=== PATIENT | male | born 1970 | race Caucasian/White ===

== ENCOUNTER 2017-04-10 22:14 | Emergency (ER) | payer OTHER ==
[~2017-04-10] VITALS: Ht 170.2 cm; Wt 84.0 kg
[~2017-04-10 22:14] MED LIST: 1-ME1LIQ PO; ATOR80TA41 PO; CIPR500T4 PO; CONTOUR1 XX; DIPH1TAB36 PO; FLON0.053; GLIP10TA6 PO; GLUCTAB PO; METF1000 PO; PRED50 PO; VENTAER INH
[2017-04-10 22:23] VITALS: BP 123/72; PULSE 102; RESP 12; TEMP 99.2; O2SAT 99
[2017-04-10 22:34] VITALS: BP 123/72; PULSE 96; RESP 14; TEMP 99.2; O2SAT 98
[2017-04-10 23:29] LABS: AUTOMATED NEUTROPHIL # 4.6 TH/MM3 (1.8-7.7); BASOPHIL # 0.1 TH/MM3 (0-0.2); BASOPHIL % 1.4 % (0.0-2.0); EOSINOPHIL # 0.1 TH/MM3 (0-0.4); EOSINOPHIL % 1.2 % (0.0-4.0); HEMATOCRIT 41.2 % (39.0-51.0); HEMO FLAGS DIFF FINAL; LYMPH % 37.6 % (9.0-44.0); LYMPHOCYTE # 3.6 TH/MM3 (1.0-4.8); MEAN CELL VOLUME 95.7 FL (80.0-100.0); MEAN CORPUSCULAR HEMOGLOBIN 32.8 PG (27.0-34.0); MEAN CORPUSCULAR HGB CONC 34.3 % (32.0-36.0); MONO % 10.6 % (0.0-8.0); NEUT % 49.2 % (16.0-70.0); PLATELET COUNT 271 TH/MM3 (150-450); RED CELL DISTRIBUTION WIDTH 13.8 % (11.6-17.2); WHITE BLOOD COUNT 9.4 TH/MM3 (4.0-11.0)
[2017-04-10 23:35] LABS: AMPHETAMINE, URINE NEG (NEG); BARBITURATES, URINE NEG (NEG); COCAINE, URINE NEG (NEG)
[2017-04-10 23:41] LABS: ANION GAP 13 MEQ/L (5-15)
[2017-04-10 23:44] LABS: ALKALINE PHOSPHATASE 171 U/L (45-117); ALT (GPT) 196 U/L (12-78); AST (GOT) 152 U/L (15-37); BICARBONATE 23.5 MEQ/L (21.0-32.0); BLOOD UREA NITROGEN 7 MG/DL (7-18); CHLORIDE 98 MEQ/L (98-107); GLOMERULAR FILTRATION RATE 115 ML/MIN (>89); POTASSIUM 3.8 MEQ/L (3.5-5.1); SODIUM (NA) 134 MEQ/L (136-145); TOTAL BILIRUBIN ADULT 0.6 MG/DL (0.2-1.0)
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
[2017-04-11 04:03] VITALS: BP 134/68; PULSE 88; RESP 16; O2SAT 97
[2017-04-11 05:21] VITALS: BP 96/68; PULSE 68; RESP 16; O2SAT 99
--- NOTE | 2017-04-11 13:08 | PD.CONS ---
Provisional Diagnosis Admission Date [place] I. Alcohol induced mood disorder, alcohol abuse [place] II. Deferred deferred [place] III. Diabetics History of Present Illness Service Psychiatry Consult Requested By Primary Care Physician OWEN Mo The patient is a 46-year-old man, , domicile with his mother in [place], employed, with psychiatric history of depression, alcohol use disorder, no psychiatric hospitalizations, no suicide attempts, he has overdosed with alcohol in the past, medical history of diabetes mellitus, who was brought to the hospital under Echavarria act intoxicated with alcohol and was suicidal ideation. Initial BAL was 238. Today a psychiatric evaluation patient denies suicidal ideation, denies depressive symptoms, is that he has been having marital conflicts with his , he has been no coping well with anxiety and stress, but he understand his problem is alcohol. He just finished yesterday at 7 days course of detox in [facility]. He says that his is scheduled to start rehabilitation on April 14 in [facility] and his planning to be compliant. At this moment patient denies homicidal ideation, visual hallucinations. Patient is oriented 3. Review of Systems Constitutional: DENIES: Diaphoretic episodes, Fatigue, Fever, Weight gain, Weight loss, Chills, Dizziness, Change in appetite, Night Sweats Endocrine: DENIES: Heat/cold intolerance, Polydipsia, Polyuria, Polyphagia Eyes: DENIES: Blurred vision, Diplopia, Eye inflammation, Eye pain, Vision loss , Photosensitivity, Double Vision Ears, nose, mouth, throat: DENIES: Tinnitus, Hearing loss, Vertigo, Nasal discharge, Oral lesions, Throat pain, Hoarseness, Ear Pain, Running Nose, Epistaxis, Sinus Pain, Toothache, Odynophagia Respiratory: DENIES: Apneas, Cough, Snoring, Wheezing, Hemoptysis, Sputum production, Shortness of breath Cardiovascular: DENIES: Chest pain, Palpitations, Syncope, Dyspnea on Exertion , PND, Lower Extremity Edema, Orthopnea, Claudication Gastrointestinal: DENIES: Abdominal pain, Black stools, Bloody stools, Constipation, Diarrhea, Nausea, Vomiting, Difficulty Swallowing, Anorexia Genitourinary: DENIES: Sexual dysfunction, Urinary frequency, Urinary incontinence, Urgency, Hematuria, Dysuria, Nocturia, Penile Discharge, Testicular Pain, Testicular Swelling Musculoskeletal: DENIES: Joint pain, Muscle aches, Stiffness, Joint Swelling, Back pain, Neck pain Integumentary: DENIES: Abnormal pigmentation, Nail changes, Pruritus, Rash Hematologic/lymphatic: DENIES: Bruising, Lymphadenopathy Immunologic/allergic: DENIES: Eczema, Urticaria Neurologic: DENIES: Abnormal gait, Headache, Localized weakness, Paresthesias, Seizures, Speech Problems, Tremor, Poor Balance Past Family Social History Coded Allergies: Penicillin (Verified Allergy, Severe, 04/10/17) as a child unknown reaction poss rash Morphine (Verified Adverse Reaction, Severe, N&V, 04/10/17) and high fever Active Scripts Metformin 1,000 Mg Tab1,000 Mg PO BIDPC #180 TAB Ref 0 With meals Prov:Rosalinda Jones MD 10/05/16 Family History Patient denies family psychiatric history Social History Patient was born and raised in [place], lives in [place] with mother, disabled, employed, highest level of education is high school Patient's Strengths (min. 2) Insight of his alcoholism Physical Exam No withdrawal, no EPS, no agitation, no tremors Vital Signs Vital Signs Date Time Temp Pulse Resp B/P Pulse Ox O2 Delivery O2 Flow Rate FiO2 04/11/17 05:21 68 16 96/68 99 04/11/17 04:03 Room Air 04/10/17 22:34 99.2 Lab Results Toxicology positive for benzodiazepines, BAL 238 Mental Status Examination Appearance Patient has [facility], age appearing, good hygiene, calm and cooperative Speech: Unremarkable Orientation: x3 Memory: Unremarkable Thought Process: Logical Thought Content: Unremarkable Hallucination Type: None Suicidal Ideation: No Previous Suicide Attempts: No Homicidal Ideation: No Previous Homicide Attempts: No Insight: Fair Affect: Good Mood: Appropriate Motor Activity: Normal gait Assessment & Plan Problem List: (1) Alcohol abuse with alcohol-induced mood disorder Assessment & Plan: Patient denies depression, denies anxiety, denies psychosis , he denies suicidal or homicidal ideation, he denies visual and auditory hallucinations. Patient is motivated to go to his rehabilitation program on April 14, he just finished detox in [facility] act. He does not meet criteria for psychiatric admission. Motivational interview provided. Echavarria act will be lifted.. ICD Code: F10.14 Assessment & Plan Estimated LOS: Allen Armendariz MD April 11, 2017 13:07
== END 2017-04-11 08:56 | disposition home or self-care (01) ==
LOC: NEPD 22:14
DX: F10.14 Alcohol abuse with alcohol-induced mood disorder (principal); F43.21 Adjustment disorder with depressed mood; R74.0 Nonspecific elevation of levels of transaminase and lactic acid dehydrogenase [LDH]; I10 Essential (primary) hypertension; E11.9 Type 2 diabetes mellitus without complications
CPT/HCPCS: 80053; 80307; 85025; 99284

== ENCOUNTER 2017-04-19 20:33 | Emergency (ER) | payer SELFPAY ==
[~2017-04-19] VITALS: Ht 177.8 cm; Wt 100.0 kg
[~2017-04-19 20:33] MED LIST changes: -1-ME1LIQ PO; -ATOR80TA41 PO; -CIPR500T4 PO; -CONTOUR1 XX; -DIPH1TAB36 PO; -FLON0.053; -GLIP10TA6 PO; -GLUCTAB PO; -PRED50 PO; -VENTAER INH
[2017-04-19 20:40] VITALS: BP 109/66; PULSE 101; RESP 22; TEMP 98.7; O2SAT 93
[2017-04-19] MEDS ORDERED: THIAMINE HCL 100 MG TAB PO ONE (20:45)
[2017-04-19] MEDS ORDERED: SODIUM CHLOR 0.9% 1000 ML INJ 1,000 ML IV ONE (20:45)
[2017-04-19] MEDS ORDERED: FOLIC ACID 1 MG TAB PO ONE (20:45)
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
[2017-04-19 21:00] VITALS: BP 109/65; PULSE 97; RESP 18; O2SAT 96
[2017-04-19 21:02] LABS: AUTOMATED NEUTROPHIL # 3.9 TH/MM3 (1.8-7.7); BASOPHIL # 0.1 TH/MM3 (0-0.2); BASOPHIL % 1.4 % (0.0-2.0); EOSINOPHIL # 0.3 TH/MM3 (0-0.4); EOSINOPHIL % 3.5 % (0.0-4.0); HEMATOCRIT 41.4 % (39.0-51.0); HEMO FLAGS DIFF FINAL; LYMPH % 42.8 % (9.0-44.0); LYMPHOCYTE # 3.6 TH/MM3 (1.0-4.8); MEAN CELL VOLUME 96.4 FL (80.0-100.0); MEAN CORPUSCULAR HEMOGLOBIN 32.1 PG (27.0-34.0); MEAN CORPUSCULAR HGB CONC 33.3 % (32.0-36.0); MONO % 6.2 % (0.0-8.0); NEUT % 46.1 % (16.0-70.0); PLATELET COUNT 296 TH/MM3 (150-450); RED CELL DISTRIBUTION WIDTH 13.4 % (11.6-17.2); WHITE BLOOD COUNT 8.5 TH/MM3 (4.0-11.0)
[2017-04-19 21:23] LABS: ANION GAP 11 MEQ/L (5-15)
[2017-04-19 21:28] LABS: ALKALINE PHOSPHATASE 196 U/L (45-117); ALT (GPT) 117 U/L (12-78); AST (GOT) 126 U/L (15-37); BICARBONATE 23.8 MEQ/L (21.0-32.0); BLOOD UREA NITROGEN 3 MG/DL (7-18); CHLORIDE 105 MEQ/L (98-107); GLOMERULAR FILTRATION RATE 127 ML/MIN (>89); POTASSIUM 3.8 MEQ/L (3.5-5.1); SODIUM (NA) 140 MEQ/L (136-145); TOTAL BILIRUBIN ADULT 0.5 MG/DL (0.2-1.0)
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
--- NOTE | 2017-04-19 21:49 | RADRPT ---
EXAM DATE/TIME: 04/19/2017 21:07 [facility] COMPARISON: No previous studies available for comparison. INDICATIONS : Fall. MEDICAL HISTORY : None. SURGICAL HISTORY : None. ENCOUNTER: Initial ACUITY: 1 day PAIN SCORE: 0/10 LOCATION: Bilateral L-spine FINDINGS: There is no acute compression fracture or spondylolisthesis of the lumbar spine. There is disc space narrowing at L3-4 and L5-S1. Mild scoliosis of the lumbar spine is noted. CONCLUSION: 1. No acute compression fracture or spondylolisthesis. 2. Degenerative disc disease at L3-4 and L5-S1. 3. Mild scoliosis of the lumbar spine. Chandler Powell MD on April 19, 2017 at 21:31 Board Certified Radiologist. This report was verified electronically.
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
[2017-04-20 06:21] VITALS: BP 115/78; PULSE 88; RESP 17; O2SAT 97
== END 2017-04-20 06:24 | disposition home or self-care (01) ==
LOC: NEPD 20:33
DX: F10.120 Alcohol abuse with intoxication, uncomplicated (principal); S09.90XA Unspecified injury of head, initial encounter; S20.212A Contusion of left front wall of thorax, initial encounter; I10 Essential (primary) hypertension; E11.9 Type 2 diabetes mellitus without complications; Y90.8 Blood alcohol level of 240 mg/100 ml or more; V19.9XXA Pedal cyclist (driver) (passenger) injured in unspecified traffic accident, initial encounter; Y93.55 Activity, bike riding; Z79.84 Long term (current) use of oral hypoglycemic drugs
CPT/HCPCS: 70450; 71010; 72072; 72100; 72125; 80053; 80307; 85025; 99285; J7030

== ENCOUNTER 2017-04-20 20:01 | Emergency (ER) | payer OTHER ==
[~2017-04-20] VITALS: Ht 172.7 cm; Wt 105.0 kg
[2017-04-20 20:17] VITALS: BP 110/59; PULSE 91; RESP 16; TEMP 98.1; O2SAT 98
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
[2017-04-20 20:53] LABS: AUTOMATED NEUTROPHIL # 5.4 TH/MM3 (1.8-7.7); BASOPHIL # 0.2 TH/MM3 (0-0.2); BASOPHIL % 1.4 % (0.0-2.0); EOSINOPHIL # 0.3 TH/MM3 (0-0.4); EOSINOPHIL % 2.7 % (0.0-4.0); HEMATOCRIT 41.4 % (39.0-51.0); HEMO FLAGS DIFF FINAL; LYMPH % 39.5 % (9.0-44.0); LYMPHOCYTE # 4.1 TH/MM3 (1.0-4.8); MEAN CORPUSCULAR HEMOGLOBIN 32.7 PG (27.0-34.0); MEAN CORPUSCULAR HGB CONC 34.4 % (32.0-36.0); MONO % 4.9 % (0.0-8.0); NEUT % 51.5 % (16.0-70.0); PLATELET COUNT 305 TH/MM3 (150-450); RED BLOOD COUNT 4.36 MIL/MM3 (4.50-5.90); RED CELL DISTRIBUTION WIDTH 13.3 % (11.6-17.2); WHITE BLOOD COUNT 10.5 TH/MM3 (4.0-11.0)
[2017-04-20 21:09] LABS: ANION GAP 11 MEQ/L (5-15); AST (GOT) 103 U/L (15-37); BICARBONATE 24.6 MEQ/L (21.0-32.0); BLOOD UREA NITROGEN 4 MG/DL (7-18); CHLORIDE 106 MEQ/L (98-107); GLOMERULAR FILTRATION RATE 147 ML/MIN (>89); POTASSIUM 3.6 MEQ/L (3.5-5.1); SODIUM (NA) 142 MEQ/L (136-145)
[2017-04-20 21:10] LABS: ALT (GPT) 102 U/L (12-78)
[2017-04-20 21:14] LABS: ALKALINE PHOSPHATASE 193 U/L (45-117); TOTAL BILIRUBIN ADULT 0.5 MG/DL (0.2-1.0)
[2017-04-20] MEDS ORDERED: ACETAMINOPHEN 325 MG TAB PO ONE (22:15)
[2017-04-20 22:48] LABS: AMPHETAMINE, URINE NEG (NEG); BARBITURATES, URINE NEG (NEG); COCAINE, URINE NEG (NEG)
[2017-04-21 00:27] VITALS: BP 112/68; PULSE 79; RESP 18; O2SAT 98
[2017-04-21 04:11] VITALS: BP 113/55
== END 2017-04-21 04:17 ==
LOC: NEPD 20:01
DX: F10.14 Alcohol abuse with alcohol-induced mood disorder (principal); I10 Essential (primary) hypertension; E11.9 Type 2 diabetes mellitus without complications; Y90.8 Blood alcohol level of 240 mg/100 ml or more; Z79.84 Long term (current) use of oral hypoglycemic drugs
CPT/HCPCS: 80053; 80307; 85025; 99284

== ENCOUNTER 2017-04-29 19:52 | Emergency (ER) | payer OTHER ==
[2017-04-29 20:03] VITALS: BP 96/62; PULSE 96; RESP 16; TEMP 98; O2SAT 96
[2017-04-29] MEDS ORDERED: AMLO5TAB2 PO (22:04)
[2017-04-29 23:37] LABS: AUTOMATED NEUTROPHIL # 5.6 TH/MM3 (1.8-7.7); BASOPHIL # 0.1 TH/MM3 (0-0.2); EOSINOPHIL # 0.2 TH/MM3 (0-0.4); EOSINOPHIL % 1.5 % (0.0-4.0); HEMATOCRIT 43.4 % (39.0-51.0); HEMO FLAGS DIFF FINAL; LYMPH % 36.1 % (9.0-44.0); LYMPHOCYTE # 3.7 TH/MM3 (1.0-4.8); MEAN CELL VOLUME 96.4 FL (80.0-100.0); MEAN CORPUSCULAR HEMOGLOBIN 32.7 PG (27.0-34.0); MONO % 6.7 % (0.0-8.0); NEUT % 54.7 % (16.0-70.0); PLATELET COUNT 193 TH/MM3 (150-450); RED CELL DISTRIBUTION WIDTH 13.4 % (11.6-17.2); WHITE BLOOD COUNT 10.3 TH/MM3 (4.0-11.0)
[2017-04-29 23:50] LABS: AMPHETAMINE, URINE NEG (NEG); BARBITURATES, URINE NEG (NEG); COCAINE, URINE NEG (NEG)
[2017-04-29 23:55] LABS: ANION GAP 12 MEQ/L (5-15); BICARBONATE 22.8 MEQ/L (21.0-32.0); BLOOD UREA NITROGEN 7 MG/DL (7-18); CHLORIDE 102 MEQ/L (98-107); GLOMERULAR FILTRATION RATE 132 ML/MIN (>89); POTASSIUM 3.9 MEQ/L (3.5-5.1); SODIUM (NA) 137 MEQ/L (136-145)
[2017-04-29 23:56] LABS: ALT (GPT) 96 U/L (12-78)
[2017-04-30 00:03] LABS: ALKALINE PHOSPHATASE 150 U/L (45-117); AST (GOT) 80 U/L (15-37); TOTAL BILIRUBIN ADULT 0.5 MG/DL (0.2-1.0)
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
[2017-04-30 04:03] VITALS: BP 107/65; PULSE 99; RESP 18; TEMP 98.1; O2SAT 97
[2017-04-30 09:30] VITALS: BP 151/82; PULSE 97; RESP 20; TEMP 98.7; O2SAT 97
[2017-04-30 11:13] VITALS: BP 135/79; PULSE 109; RESP 20; TEMP 98.8; O2SAT 95
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
== END 2017-04-30 14:00 | disposition home or self-care (01) ==
LOC: NEDAMB 19:52 → NEPJ 04-30 14:00
DX: Z02.89 Encounter for other administrative examinations (principal); R74.0 Nonspecific elevation of levels of transaminase and lactic acid dehydrogenase [LDH]; F10.920 Alcohol use, unspecified with intoxication, uncomplicated; R45.851 Suicidal ideations; F10.10 Alcohol abuse, uncomplicated; E11.9 Type 2 diabetes mellitus without complications; I10 Essential (primary) hypertension; Z79.84 Long term (current) use of oral hypoglycemic drugs
CPT/HCPCS: 80053; 80307; 85025; 99284

== ENCOUNTER 2017-05-04 18:17 | Emergency (ER) | payer OTHER ==
[~2017-05-04] VITALS: Ht 172.7 cm; Wt 110.0 kg
[~2017-05-04 18:17] MED LIST changes: +AMLO5TAB2 PO
[2017-05-04 18:50] VITALS: BP 121/75; PULSE 88; RESP 16; TEMP 98.7; O2SAT 96
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
[2017-05-04 19:58] LABS: AUTOMATED NEUTROPHIL # 3.1 TH/MM3 (1.8-7.7); BASOPHIL # 0.1 TH/MM3 (0-0.2); EOSINOPHIL # 0.3 TH/MM3 (0-0.4); EOSINOPHIL % 3.4 % (0.0-4.0); HEMATOCRIT 42.5 % (39.0-51.0); HEMO FLAGS DIFF FINAL; LYMPH % 49.9 % (9.0-44.0); LYMPHOCYTE # 3.9 TH/MM3 (1.0-4.8); MEAN CELL VOLUME 96.1 FL (80.0-100.0); MEAN CORPUSCULAR HEMOGLOBIN 32.5 PG (27.0-34.0); MEAN CORPUSCULAR HGB CONC 33.8 % (32.0-36.0); MONO % 5.6 % (0.0-8.0); NEUT % 40.1 % (16.0-70.0); PLATELET COUNT 247 TH/MM3 (150-450); RED BLOOD COUNT 4.42 MIL/MM3 (4.50-5.90); RED CELL DISTRIBUTION WIDTH 13.6 % (11.6-17.2); WHITE BLOOD COUNT 7.8 TH/MM3 (4.0-11.0)
[2017-05-04 20:14] LABS: AMPHETAMINE, URINE NEG (NEG); BARBITURATES, URINE NEG (NEG); COCAINE, URINE NEG (NEG)
[2017-05-04 20:21] LABS: ANION GAP 11 MEQ/L (5-15); AST (GOT) 56 U/L (15-37); BICARBONATE 25.3 MEQ/L (21.0-32.0); BLOOD UREA NITROGEN 6 MG/DL (7-18); CHLORIDE 101 MEQ/L (98-107); GLOMERULAR FILTRATION RATE 132 ML/MIN (>89); POTASSIUM 3.9 MEQ/L (3.5-5.1); SODIUM (NA) 137 MEQ/L (136-145)
[2017-05-04 20:27] LABS: ALKALINE PHOSPHATASE 152 U/L (45-117); ALT (GPT) 78 U/L (12-78); TOTAL BILIRUBIN ADULT 0.3 MG/DL (0.2-1.0)
[2017-05-04 22:00] VITALS: BP 102/55; PULSE 88; RESP 16; O2SAT 98
--- NOTE | 2017-05-04 22:49 | PD ---
Data Data Last Documented VS Vital Signs Date Time Temp Pulse Resp B/P Pulse Ox O2 Delivery O2 Flow Rate FiO2 05/04/17 22:00 88 16 102/55 98 Room Air 05/04/17 18:50 98.7 Orders Complete Blood Count With Diff (05/04/17 19:17) Comprehensive Metabolic Panel (05/04/17 19:17) ^ Insert Iv (05/04/17 19:17) Alcohol (Ethanol) (05/04/17 19:17) Drug Screen, Random Urine (05/04/17 19:17) Psych Screen (05/04/17 19:17) Diet Regular Basic (05/05/17 Breakfast) Labs Laboratory Tests Test 05/04/17 19:30 White Blood Count 7.8 TH/MM3 Red Blood Count 4.42 MIL/MM3 Hemoglobin 14.4 GM/DL Hematocrit 42.5 % Mean Corpuscular Volume 96.1 FL Mean Corpuscular Hemoglobin 32.5 PG Mean Corpuscular Hemoglobin 33.8 % Concent Red Cell Distribution Width 13.6 % Platelet Count 247 TH/MM3 Mean Platelet Volume 7.5 FL Neutrophils (%) (Auto) 40.1 % Lymphocytes (%) (Auto) 49.9 % Monocytes (%) (Auto) 5.6 % Eosinophils (%) (Auto) 3.4 % Basophils (%) (Auto) 1.0 % Neutrophils # (Auto) 3.1 TH/MM3 Lymphocytes # (Auto) 3.9 TH/MM3 Monocytes # (Auto) 0.4 TH/MM3 Eosinophils # (Auto) 0.3 TH/MM3 Basophils # (Auto) 0.1 TH/MM3 CBC Comment DIFF FINAL Differential Comment Sodium Level 137 MEQ/L Potassium Level 3.9 MEQ/L Chloride Level 101 MEQ/L Carbon Dioxide Level 25.3 MEQ/L Anion Gap 11 MEQ/L Blood Urea Nitrogen 6 MG/DL Creatinine 0.65 MG/DL Estimat Glomerular Filtration 132 ML/MIN Rate Random Glucose 117 MG/DL Calcium Level 8.6 MG/DL Total Bilirubin 0.3 MG/DL Aspartate Amino Transf 56 U/L (AST/SGOT) Alanine Aminotransferase 78 U/L (ALT/SGPT) Alkaline Phosphatase 152 U/L Total Protein 8.2 GM/DL Albumin 3.4 GM/DL Urine Opiates Screen NEG Urine Barbiturates Screen NEG Urine Amphetamines Screen NEG Urine Benzodiazepines Screen POS Urine Cocaine Screen NEG Urine Cannabinoids Screen NEG Ethyl Alcohol Level 321 MG/DL MDM Supervised Visit with [facility]: No Narrative Course The patient asked me to come into the room after some time and observation in the emergency department. He is much more composed, no longer tearful, and is speaking coherently. He says that he is not suicidal and has no thoughts of hurting himself or others and he would like to be discharged and go home. He says he has an 18-year-old son and a young niece and he would never hurt himself because he cares about them. On my assessment he is future oriented, he is having no current thoughts of hurting himself or others, and I don't think I can hold him against his will based on my assessment. He no longer meets Echavraria act criteria as he is able to answer questions and express his reasoning. He's been seen multiple times in the past several weeks in the setting of alcohol-induced mood disorder and been evaluated by psychiatrist to agree that the patient can safely be discharged and that his depressive symptoms are in the setting of alcohol intoxication. I think it is responsible to lift this Echavarria act and allow the patient to be discharged in line with his wishes. Diagnosis Primary Impression: Alcohol abuse with alcohol-induced mood disorder Patient Instructions: General Instructions Additional Instruction: If you're having thoughts of hurting herself or others return to the emergency department. Follow up with [facility] in regards to psychiatric or substance related issues at: [address] [place] [id number] Med/Other Pt SpecificInfo: No Change to Meds Disposition: 01 DISCHARGE HOME Condition: Stable Lauren Bhardwaj MD May 04, 2017 22:49
[2017-05-05 06:06] VITALS: BP 126/84; TEMP 98.6
== END 2017-05-05 06:17 | disposition home or self-care (01) ==
LOC: NEDAMB 18:17
DX: F10.14 Alcohol abuse with alcohol-induced mood disorder (principal); E11.9 Type 2 diabetes mellitus without complications; I10 Essential (primary) hypertension; F10.129 Alcohol abuse with intoxication, unspecified
CPT/HCPCS: 80053; 80307; 85025; 99285

== ENCOUNTER 2017-05-11 22:01 | Emergency (ER) | payer OTHER ==
[~2017-05-11] VITALS: Ht 167.6 cm; Wt 100.0 kg
[2017-05-11 22:22] VITALS: BP 113/61; PULSE 108; RESP 18; TEMP 98; O2SAT 92
[2017-05-11 22:36] LABS: MEAN CELL VOLUME 95.6 FL (80.0-100.0); MEAN CORPUSCULAR HEMOGLOBIN 32.5 PG (27.0-34.0); PLATELET COUNT 260 TH/MM3 (150-450); RED BLOOD COUNT 4.61 MIL/MM3 (4.50-5.90); RED CELL DISTRIBUTION WIDTH 13.3 % (11.6-17.2); REVIEW FLAG FINAL; WHITE BLOOD COUNT 9.6 TH/MM3 (4.0-11.0)
[2017-05-11 22:57] LABS: ANION GAP 13 MEQ/L (5-15); AST (GOT) 48 U/L (15-37); BICARBONATE 21.3 MEQ/L (21.0-32.0); BLOOD UREA NITROGEN 6 MG/DL (7-18); CHLORIDE 101 MEQ/L (98-107); GLOMERULAR FILTRATION RATE 129 ML/MIN (>89); POTASSIUM 3.8 MEQ/L (3.5-5.1); SODIUM (NA) 135 MEQ/L (136-145)
[2017-05-11 22:58] LABS: ALT (GPT) 62 U/L (12-78)
[2017-05-11 23:00] LABS: ALKALINE PHOSPHATASE 148 U/L (45-117); TOTAL BILIRUBIN ADULT 0.4 MG/DL (0.2-1.0)
[2017-05-11 23:32] LABS: AMPHETAMINE, URINE NEG (NEG); BARBITURATES, URINE NEG (NEG); COCAINE, URINE NEG (NEG)
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
[2017-05-12 06:13] VITALS: BP 94/55; PULSE 89; RESP 16; O2SAT 94
[2017-05-12 09:58] VITALS: BP 121/89; PULSE 90; RESP 16; O2SAT 96
[2017-05-12] MEDS ORDERED: LORA-474 PO (10:48)
[2017-05-12] MEDS ORDERED: ANTA250T PO (10:49)
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
== END 2017-05-12 10:45 | disposition home or self-care (01) ==
LOC: NEDAMB 22:01 → NEPD 05-12 10:45
DX: F10.10 Alcohol abuse, uncomplicated (principal); F43.21 Adjustment disorder with depressed mood; I10 Essential (primary) hypertension; F12.90 Cannabis use, unspecified, uncomplicated; Y90.8 Blood alcohol level of 240 mg/100 ml or more; Z59.0 Homelessness
CPT/HCPCS: 80053; 80307; 85027; 99284

== ENCOUNTER 2017-08-03 17:09 | Emergency (ER) | payer OTHER ==
[~2017-08-03] VITALS: Ht 177.8 cm; Wt 100.0 kg
[~2017-08-03 17:09] MED LIST changes: +ANTA250T PO; +LORA-474 PO
[2017-08-03 17:10] VITALS: BP 90/57; PULSE 109; RESP 17; TEMP 99.3; O2SAT 92
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
[2017-08-03 18:45] VITALS: BP 110/68; PULSE 104; RESP 18; O2SAT 96
[2017-08-03 20:11] LABS: AUTOMATED NEUTROPHIL # 4.1 TH/MM3 (1.8-7.7); BASOPHIL % 0.5 % (0.0-2.0); EOSINOPHIL # 0.3 TH/MM3 (0-0.4); EOSINOPHIL % 3.1 % (0.0-4.0); HEMATOCRIT 47.2 % (39.0-51.0); HEMO FLAGS DIFF FINAL; LYMPH % 39.7 % (9.0-44.0); LYMPHOCYTE # 3.3 TH/MM3 (1.0-4.8); MEAN CELL VOLUME 92.8 FL (80.0-100.0); MEAN CORPUSCULAR HEMOGLOBIN 31.9 PG (27.0-34.0); MEAN CORPUSCULAR HGB CONC 34.4 % (32.0-36.0); MONO % 7.8 % (0.0-8.0); NEUT % 48.9 % (16.0-70.0); PLATELET COUNT 183 TH/MM3 (150-450); RED BLOOD COUNT 5.09 MIL/MM3 (4.50-5.90); RED CELL DISTRIBUTION WIDTH 13.8 % (11.6-17.2); WHITE BLOOD COUNT 8.4 TH/MM3 (4.0-11.0)
[2017-08-03 20:29] LABS: BICARBONATE 29.6 MEQ/L (21.0-32.0); POTASSIUM 4.9 MEQ/L (3.5-5.1)
== END 2017-08-03 21:37 ==
LOC: NEPJ 17:09
DX: F10.14 Alcohol abuse with alcohol-induced mood disorder (principal); Y90.8 Blood alcohol level of 240 mg/100 ml or more; F32.9 Major depressive disorder, single episode, unspecified; R45.851 Suicidal ideations; S80.212A Abrasion, left knee, initial encounter; X78.1XXA Intentional self-harm by knife, initial encounter
CPT/HCPCS: 80048; 80307; 85025; 99285

== ENCOUNTER 2017-08-06 21:08 | Emergency (ER) | payer OTHER ==
[~2017-08-06] VITALS: Ht 177.8 cm; Wt 100.0 kg
[2017-08-06 22:26] VITALS: BP 127/59; PULSE 108; RESP 16; TEMP 98.4; O2SAT 94
[2017-08-06 23:27] LABS: BLOOD, URINE NEG (NEG); GLUCOSE,URINE NEG (NEG); KETONE, URINE NEG (NEG); NITRITE,URINE NEG (NEG); PH, URINE 5.5 (5.0-8.5); URINE COLOR LIGHT-YELLOW (YELLW/STRAW)
[2017-08-06 23:40] LABS: AUTOMATED NEUTROPHIL # 3.7 TH/MM3 (1.8-7.7); BASOPHIL % 0.6 % (0.0-2.0); EOSINOPHIL # 0.2 TH/MM3 (0-0.4); EOSINOPHIL % 2.7 % (0.0-4.0); HEMATOCRIT 45.3 % (39.0-51.0); HEMO FLAGS DIFF FINAL; LYMPH % 44.7 % (9.0-44.0); LYMPHOCYTE # 3.6 TH/MM3 (1.0-4.8); MEAN CELL VOLUME 94.3 FL (80.0-100.0); MEAN CORPUSCULAR HEMOGLOBIN 31.7 PG (27.0-34.0); MEAN CORPUSCULAR HGB CONC 33.6 % (32.0-36.0); MONO % 6.6 % (0.0-8.0); NEUT % 45.4 % (16.0-70.0); PLATELET COUNT 186 TH/MM3 (150-450); RED BLOOD COUNT 4.81 MIL/MM3 (4.50-5.90); RED CELL DISTRIBUTION WIDTH 13.8 % (11.6-17.2); WHITE BLOOD COUNT 8.1 TH/MM3 (4.0-11.0)
[2017-08-06 23:48] LABS: COMMENT (UR) CULT NOT INDICATED; CULTURE IF INDICATED CULT NOT INDICATED
[2017-08-06 23:58] LABS: ALKALINE PHOSPHATASE 127 U/L (45-117); ALT (GPT) 40 U/L (12-78); ANION GAP 8 MEQ/L (5-15); AST (GOT) 32 U/L (15-37); BICARBONATE 25.7 MEQ/L (21.0-32.0); BLOOD UREA NITROGEN 6 MG/DL (7-18); CHLORIDE 107 MEQ/L (98-107); GLOMERULAR FILTRATION RATE 95 ML/MIN (>89); POTASSIUM 3.7 MEQ/L (3.5-5.1); SODIUM (NA) 141 MEQ/L (136-145); TOTAL BILIRUBIN ADULT 0.3 MG/DL (0.2-1.0)
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
[2017-08-07 05:16] VITALS: BP 117/76; PULSE 84; RESP 18; O2SAT 95
[2017-08-07 07:25] VITALS: BP 126/72; PULSE 87; RESP 18; O2SAT 95
[2017-08-07 09:15] VITALS: BP 116/85; PULSE 110; RESP 18; TEMP 98.9; O2SAT 98
[2017-08-07 12:47] VITALS: BP 116/85; PULSE 110; RESP 18; O2SAT 98
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
--- NOTE | 2017-08-07 15:12 | PD ---
Physical Exam Date Seen by Provider: Aug 07, 2017 Time Seen by Provider: 15:11 Narrative Patient seen by psychiatry and cleared for discharge. He is not suicidal or homicidal. He tells me he was intoxicated when he made those threats. He wants to go home. Data Data Last Documented VS Vital Signs Date Time Temp Pulse Resp B/P (MAP) Pulse Ox O2 Delivery O2 Flow Rate FiO2 08/07/17 14:49 08/07/17 12:47 110 18 98 Room Air 08/07/17 09:15 98.9 Orders Orders Comprehensive Metabolic Panel (08/06/17 22:58) Complete Blood Count With Diff (08/06/17 22:58) Salicylates (Aspirin) (08/06/17 22:58) Drug Screen, Random Urine (08/06/17 22:58) Urinalysis - C+S If Indicated (08/06/17 22:58) Psych Screen (08/06/17 22:58) Alcohol (Ethanol) (08/07/17 00:05) Diet Regular Basic (08/07/17 Breakfast) Diet Regular Basic (08/07/17 Lunch) Diet Regular Basic (08/07/17 Dinner) Labs Laboratory Tests Test 08/06/17 21:43 08/06/17 22:55 08/06/17 22:58 Urine Color LIGHT-YELLOW Urine Turbidity CLEAR Urine pH 5.5 Urine Specific [place] 1.004 Urine Protein NEG mg/dL Urine Glucose (UA) NEG mg/dL Urine Ketones NEG mg/dL Urine Occult Blood NEG Urine Nitrite NEG Urine Bilirubin NEG Urine Urobilinogen LESS THAN 2.0 MG/DL Urine Leukocyte Esterase NEG Urine WBC 1 /hpf Microscopic Urinalysis Comment CULT NOT INDICATED Blood Urea Nitrogen 6 MG/DL Creatinine 0.86 MG/DL Random Glucose 98 MG/DL Total Protein 8.0 GM/DL Albumin 3.4 GM/DL Calcium Level 8.5 MG/DL Alkaline Phosphatase 127 U/L Aspartate Amino Transf (AST/SGOT) 32 U/L Alanine Aminotransferase (ALT/SGPT) 40 U/L Total Bilirubin 0.3 MG/DL Sodium Level 141 MEQ/L Potassium Level 3.7 MEQ/L Chloride Level 107 MEQ/L Carbon Dioxide Level 25.7 MEQ/L Anion Gap 8 MEQ/L Estimat Glomerular Filtration Rate 95 ML/MIN Ethyl Alcohol Level 333 MG/DL White Blood Count 8.1 TH/MM3 Red Blood Count 4.81 MIL/MM3 Hemoglobin 15.2 GM/DL Hematocrit 45.3 % Mean Corpuscular Volume 94.3 FL Mean Corpuscular Hemoglobin 31.7 PG Mean Corpuscular Hemoglobin Concent 33.6 % Red Cell Distribution Width 13.8 % Platelet Count 186 TH/MM3 Mean Platelet Volume 7.2 FL Neutrophils (%) (Auto) 45.4 % Lymphocytes (%) (Auto) 44.7 % Monocytes (%) (Auto) 6.6 % Eosinophils (%) (Auto) 2.7 % Basophils (%) (Auto) 0.6 % Neutrophils # (Auto) 3.7 TH/MM3 Lymphocytes # (Auto) 3.6 TH/MM3 Monocytes # (Auto) 0.5 TH/MM3 Eosinophils # (Auto) 0.2 TH/MM3 Basophils # (Auto) 0.0 TH/MM3 CBC Comment DIFF FINAL Differential Comment Salicylates Level LESS THAN 1.7 MG/DL Urine Opiates Screen NEG Urine Barbiturates Screen NEG Urine Amphetamines Screen NEG Urine Benzodiazepines Screen POS Urine Cocaine Screen NEG Urine Cannabinoids Screen NEG MDM Medical Record Reviewed: Yes Supervised Visit with MILTON: No Differential Diagnosis Drug-induced mood disorder Narrative Course Patient is been cleared by psychiatry. Diagnosis Primary Impression: Alcohol dependence Qualified Codes: F10.20 - Alcohol dependence, uncomplicated Additional Impression: Alcohol abuse with alcohol-induced mood disorder Patient Instructions: General Instructions Departure Forms: Tests/Procedures Scripts No Active Prescriptions or Reported Meds Disposition: 01 DISCHARGE HOME Condition: Stable Nyia Quiles Aug 07, 2017 15:12
== END 2017-08-07 17:00 | disposition home or self-care (01) ==
LOC: NEDAMB 21:08 → NEPJ 08-07 17:00
DX: F10.24 Alcohol dependence with alcohol-induced mood disorder (principal); Y90.8 Blood alcohol level of 240 mg/100 ml or more
CPT/HCPCS: 80053; 80307; 81001; 85025; 99284

== ENCOUNTER 2017-09-05 05:45 | Emergency (ER) | payer SELFPAY ==
[~2017-09-05] VITALS: Ht 172.7 cm; Wt 115.0 kg
[2017-09-05 05:48] VITALS: BP 131/79; PULSE 117; RESP 16; TEMP 97.9; O2SAT 97
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
[2017-09-05 10:31] LABS: AUTOMATED NEUTROPHIL # 4.5 TH/MM3 (1.8-7.7); BASOPHIL # 0.1 TH/MM3 (0-0.2); BASOPHIL % 0.9 % (0.0-2.0); EOSINOPHIL # 0.1 TH/MM3 (0-0.4); EOSINOPHIL % 1.5 % (0.0-4.0); HEMATOCRIT 44.3 % (39.0-51.0); HEMO FLAGS DIFF FINAL; LYMPH % 34.5 % (9.0-44.0); LYMPHOCYTE # 2.8 TH/MM3 (1.0-4.8); MEAN CORPUSCULAR HEMOGLOBIN 32.4 PG (27.0-34.0); MEAN CORPUSCULAR HGB CONC 34.9 % (32.0-36.0); MONO % 7.6 % (0.0-8.0); NEUT % 55.5 % (16.0-70.0); PLATELET COUNT 270 TH/MM3 (150-450); RED BLOOD COUNT 4.76 MIL/MM3 (4.50-5.90); RED CELL DISTRIBUTION WIDTH 13.7 % (11.6-17.2); WHITE BLOOD COUNT 8.1 TH/MM3 (4.0-11.0)
[2017-09-05 10:58] LABS: ANION GAP 9 MEQ/L (5-15)
[2017-09-05 11:04] LABS: ALKALINE PHOSPHATASE 159 U/L (45-117); ALT (GPT) 76 U/L (12-78); AST (GOT) 48 U/L (15-37); BICARBONATE 24.1 MEQ/L (21.0-32.0); BLOOD UREA NITROGEN 10 MG/DL (7-18); CHLORIDE 103 MEQ/L (98-107); GLOMERULAR FILTRATION RATE 111 ML/MIN (>89); POTASSIUM 4.2 MEQ/L (3.5-5.1); SODIUM (NA) 136 MEQ/L (136-145); TOTAL BILIRUBIN ADULT 0.4 MG/DL (0.2-1.0)
[2017-09-05 11:05] LABS: ACETAMINOPHEN LESS THAN 2.0 MCG/ML (10.0-30.0); ALCOHOL 198 MG/DL (0-5)
[2017-09-05 11:59] VITALS: BP 120/87; PULSE 94; RESP 18; TEMP 98.4; O2SAT 96
[2017-09-05 16:30] VITALS: BP 135/82; PULSE 68; RESP 16; O2SAT 98
--- NOTE | 2017-09-05 19:55 | PD ---
Data Data Last Documented VS Vital Signs Date Time Temp Pulse Resp B/P (MAP) Pulse Ox O2 Delivery O2 Flow Rate FiO2 09/05/17 16:30 68 16 135/82 (99) 98 Room Air 09/05/17 11:59 98.4 Orders Orders Complete Blood Count With Diff (09/05/17 09:56) Comprehensive Metabolic Panel (09/05/17 09:56) Psych Screen (09/05/17 09:56) Drug Screen, Random Urine (09/05/17 09:56) Alcohol (Ethanol) (09/05/17 09:56) Salicylates (Aspirin) (09/05/17 09:56) Tylenol (Acetaminophen) (09/05/17 09:56) Labs Laboratory Tests Test 09/05/17 10:11 09/05/17 10:22 White Blood Count 8.1 TH/MM3 Red Blood Count 4.76 MIL/MM3 Hemoglobin 15.4 GM/DL Hematocrit 44.3 % Mean Corpuscular Volume 93.0 FL Mean Corpuscular Hemoglobin 32.4 PG Mean Corpuscular Hemoglobin Concent 34.9 % Red Cell Distribution Width 13.7 % Platelet Count 270 TH/MM3 Mean Platelet Volume 7.3 FL Neutrophils (%) (Auto) 55.5 % Lymphocytes (%) (Auto) 34.5 % Monocytes (%) (Auto) 7.6 % Eosinophils (%) (Auto) 1.5 % Basophils (%) (Auto) 0.9 % Neutrophils # (Auto) 4.5 TH/MM3 Lymphocytes # (Auto) 2.8 TH/MM3 Monocytes # (Auto) 0.6 TH/MM3 Eosinophils # (Auto) 0.1 TH/MM3 Basophils # (Auto) 0.1 TH/MM3 CBC Comment DIFF FINAL Differential Comment Blood Urea Nitrogen 10 MG/DL Creatinine 0.75 MG/DL Random Glucose 129 MG/DL Total Protein 8.8 GM/DL Albumin 3.6 GM/DL Calcium Level 8.3 MG/DL Alkaline Phosphatase 159 U/L Aspartate Amino Transf (AST/SGOT) 48 U/L Alanine Aminotransferase (ALT/SGPT) 76 U/L Total Bilirubin 0.4 MG/DL Sodium Level 136 MEQ/L Potassium Level 4.2 MEQ/L Chloride Level 103 MEQ/L Carbon Dioxide Level 24.1 MEQ/L Anion Gap 9 MEQ/L Estimat Glomerular Filtration Rate 111 ML/MIN Salicylates Level LESS THAN 1.7 MG/DL Acetaminophen Level LESS THAN 2.0 MCG/ML Ethyl Alcohol Level 198 MG/DL Urine Opiates Screen NEG Urine Barbiturates Screen NEG Urine Amphetamines Screen NEG Urine Benzodiazepines Screen POS Urine Cocaine Screen NEG Urine Cannabinoids Screen NEG MDM Supervised Visit with [facility]: No Narrative Course Patient seen and examined by me at 1955. This is a 47-year-old male history of alcoholism who is had a relapse tonight and this morning. He presented intoxicated and depressed but he is adamantly denying any suicidal homicidal ideation at this time. He has no physical complaints at this time. He is here voluntarily. The police brought him in and according to him the police offered him to go to group home for open container versus come to the hospital. I was approached by the psych screener cadence to examine the patient for possible discharge. At this time the patient is here on voluntary status, he does not meet [place] act criteria as he is not a threat to himself or to others. He is not greatly disabled. There is no indication to hold the patient here against his will. Diagnosis Primary Impression: Encounter for psychological evaluation Referrals: [facility] Scripts No Active Prescriptions or Reported Meds Disposition: 01 DISCHARGE HOME Condition: Stable Chandler Rivera MD Sep 05, 2017 19:55
[2017-09-05 20:23] VITALS: BP 142/56; TEMP 98.3
== END 2017-09-05 20:24 | disposition home or self-care (01) ==
LOC: NEPD 05:45
DX: Z02.89 Encounter for other administrative examinations (principal); R44.0 Auditory hallucinations; E11.9 Type 2 diabetes mellitus without complications; I10 Essential (primary) hypertension; Z86.59 Personal history of other mental and behavioral disorders; Z86.79 Personal history of other diseases of the circulatory system; Z86.69 Personal history of other diseases of the nervous system and sense organs; Z87.438 Personal history of other diseases of male genital organs
CPT/HCPCS: 80053; 80307; 85025; 99284

== ENCOUNTER 2017-11-04 20:24 | Emergency (ER) | payer OTHER ==
[~2017-11-04] VITALS: Ht 170.2 cm; Wt 100.0 kg
[2017-11-04 20:29] VITALS: BP 127/67; PULSE 107; RESP 18; TEMP 98.2; O2SAT 95
[2017-11-04] MEDS ORDERED: SODIUM CHLOR 0.9% 1000 ML INJ 1,000 ML IV ONE (20:45)
[2017-11-04] MEDS ORDERED: SODIUM CHLORIDE 0.9% FLUSH 10 ML FLUSH IV FLUSH PRN (20:45)
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
[2017-11-04 20:59] LABS: AUTOMATED NEUTROPHIL # 3.7 TH/MM3 (1.8-7.7); BASOPHIL # 0.1 TH/MM3 (0-0.2); EOSINOPHIL # 0.1 TH/MM3 (0-0.4); EOSINOPHIL % 1.6 % (0.0-4.0); HEMATOCRIT 45.7 % (39.0-51.0); HEMOGLOBIN 15.8 GM/DL (13.0-17.0); LYMPH % 46.5 % (9.0-44.0); LYMPHOCYTE # 4.1 TH/MM3 (1.0-4.8); MEAN CELL VOLUME 93.6 FL (80.0-100.0); MEAN CORPUSCULAR HEMOGLOBIN 32.3 PG (27.0-34.0); MEAN CORPUSCULAR HGB CONC 34.5 % (32.0-36.0); MEAN PLATELET VOLUME 7.5 FL (7.0-11.0); MONO % 9.2 % (0.0-8.0); MONOCYTE # 0.8 TH/MM3 (0-0.9); NEUT % 41.7 % (16.0-70.0); PLATELET COUNT 177 TH/MM3 (150-450); RED BLOOD COUNT 4.88 MIL/MM3 (4.50-5.90); WHITE BLOOD COUNT 8.9 TH/MM3 (4.0-11.0)
[2017-11-04 21:11] LABS: ALBUMIN 3.6 GM/DL (3.4-5.0); AST (GOT) 44 U/L (15-37); BICARBONATE 23.3 MEQ/L (21.0-32.0); BLOOD UREA NITROGEN 10 MG/DL (7-18); CALCIUM 8.2 MG/DL (8.5-10.1); CHLORIDE 102 MEQ/L (98-107); CREATININE 0.79 MG/DL (0.60-1.30); GLOMERULAR FILTRATION RATE 105 ML/MIN (>89); GLUCOSE,RANDOM 130 MG/DL (74-106); LIPASE 170 U/L (73-393); SODIUM (NA) 137 MEQ/L (136-145)
[2017-11-04 21:12] LABS: ALT (GPT) 57 U/L (12-78)
--- NOTE | 2017-11-04 21:12 | RADRPT ---
EXAM DATE/TIME: 11/04/2017 20:40 [facility] COMPARISON: No previous studies available for comparison. INDICATIONS : Fall. Head pain RADIATION DOSE: 56.35 CTDIvol (mGy) MEDICAL HISTORY : Hypertension. Diabetes mellitus type 2. SURGICAL HISTORY : Appendectomy. ENCOUNTER: Initial ACUITY: 1 day PAIN SCALE: 2/10 LOCATION: cranial TECHNIQUE: Multiple contiguous axial images were obtained of the head. Using automated exposure control and adj ustment of the mA and/or kV according to patient size, radiation dose was kept as low as reasonably a chievable to obtain optimal diagnostic quality images. DICOM format image data is available electro nically for review and comparison. FINDINGS: CEREBRUM: The ventricles are normal for age. No evidence of midline shift, mass lesion, hemorrhage or acute in farction. No extra-axial fluid collections are seen. POSTERIOR FOSSA: The cerebellum and brainstem are intact. The 4th ventricle is midline. The cerebellopontine angle i s unremarkable. EXTRACRANIAL: The visualized portion of the orbits is intact. SKULL: The calvaria is intact. No evidence of skull fracture. CONCLUSION: 1. No intracranial abnormalities. Ronnie Conley MD on November 04, 2017 at 21:09 Board Certified Radiologist. This report was verified electronically.
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
[2017-11-04 21:15] LABS: ALKALINE PHOSPHATASE 125 U/L (45-117); TOTAL BILIRUBIN ADULT 0.3 MG/DL (0.2-1.0); TOTAL PROTEIN 8.4 GM/DL (6.4-8.2)
[2017-11-04 21:43] LABS: AMORPHOUS SEDIMENT, URINE RARE; BILIRUBIN, URINE NEG (NEG); BLOOD, URINE NEG (NEG); GLUCOSE,URINE NEG (NEG); KETONE, URINE NEG (NEG); NITRITE,URINE NEG (NEG); URINE COLOR LIGHT-YELLOW (YELLW/STRAW); URINE LEUKOCYTE ESTERASE NEG (NEG)
[2017-11-04 21:47] VITALS: BP 119/64; PULSE 97; RESP 20; O2SAT 98
[2017-11-05 02:35] VITALS: BP 120/83; PULSE 98; O2SAT 94
== END 2017-11-05 06:36 | disposition home or self-care (01) ==
LOC: NEPE 20:24 → NEPD 11-05 06:36
DX: F10.129 Alcohol abuse with intoxication, unspecified (principal); R51 Headache; M54.2 Cervicalgia; V19.9XXA Pedal cyclist (driver) (passenger) injured in unspecified traffic accident, initial encounter; Y93.55 Activity, bike riding; Y90.8 Blood alcohol level of 240 mg/100 ml or more
CPT/HCPCS: 70450; 72125; 80053; 80307; 81001; 83690; 85025; 96360; 96361; 99285; J7030